=== PATIENT | female | born 1950 | race American Indian/Alaskan Native ===

== ENCOUNTER 2018-07-17 13:25 | Emergency (ER) | payer MEDICARE, OTHER ==
[2018-07-17 13:27] VITALS: BMI 47.6
[2018-07-17 13:53] VITALS: RESP 18
--- NOTE | 2018-07-17 16:20 | RAD ---
Date of service: 07/17/2018 PROCEDURE: Radiographs of the Lumbar Spine. HISTORY: L leg numbness COMPARISON: No prior. FINDINGS: BONES: There is mild anterior subluxation of L4 over L5. There are no compression fractures. DISC SPACES: Unremarkable. OTHER FINDINGS: Facet arthropathy IMPRESSION: Mild degenerative changes.
--- NOTE | 2018-07-17 16:22 | ED PDOC ---
Arrival/HPI - History of Present Illness Narrative History of Present Illness (Text): 07/17/18 16:19 Pt is a 67 yo F with pmhx of HTN, L4-5 disc herniation, CAMILLE and OA who presents for R leg numbness. She states that this started at 10:15 this AM after she was on the toilet using the bathroom. She states that she has never had this issue before. She denies any recent trauma to the area. She reports that there is no pain, just numbness to the R leg. She denies any weakness to the area and states that she can put weight on it and she can walk in it without issue. She states that the numbness is localized to the lateral R side of her leg, and goes down past the knee. Pmhx: HTN, CAMILLE, L4-5 disc herniation, OA Pshx: Denies All: Tylenol, amlodipine, hydrocodone Social: Denies tobacco use, etoh or illicit drug use Fam Hx; Denies Time/Duration: 1-3 hours Symptom Onset: Sudden Symptom Course: Improving <Eddi Sierra - Last Filed: 07/17/18 19:38> <Blanca Herrera - Last Filed: 07/17/18 19:41> - General Chief Complaint: Lower Extremity Problem/Injury Time Seen by Provider: 07/17/18 14:22 Past Medical History - Provider Review Nursing Documentation Reviewed: Yes - Infectious Disease Hx of Infectious Diseases: None - Reproductive Menopause: Yes - Cardiac Hx Hypertension: Yes - Psychiatric Hx Substance Use: No - Anesthesia Hx Anesthesia Reactions: No <Eddi Sierra - Last Filed: 07/17/18 19:38> Family/Social History - Physician Review Nursing Documentation Reviewed: Yes Family/Social History: No Known Family HX Smoking Status: Never Smoked Hx Alcohol Use: No Hx Substance Use: No <Eddi Sierra - Last Filed: 07/17/18 19:38> Allergies/Home Meds <Eddi Sierra - Last Filed: 07/17/18 19:38> <Blanca Herrera - Last Filed: 07/17/18 19:41> Allergies/Adverse Reactions: Allergies acetaminophen [From Vicodin] Allergy (Verified 07/26/16 00:59) RASH amlodipine Allergy (Verified 07/26/16 00:59) RASH hydrocodone Allergy (Verified 07/26/16 00:59) RASH hydrocodone bitartrate [From Vicodin] Allergy (Verified 07/26/16 00:59) RASH Penicillins Allergy (Verified 07/26/16 00:59) RASH sulfamethoxazole [From Bactrim] Allergy (Verified 07/26/16 00:56) RASH trimethoprim [From Bactrim] Allergy (Verified 07/26/16 00:56) RASH tyelenol Allergy (Uncoded 07/26/16 00:59) RASH Home Medications: Home Meds Medication Instructions Recorded Confirmed Baclofen 10 mg PO PRN PRN 07/26/16 07/26/16 Esomeprazole Magnesium [Nexium] 40 mg PO DAILY 07/26/16 07/26/16 Furosemide [Lasix] 40 mg PO DAILY 07/26/16 07/26/16 amLODIPine [Norvasc] 5 mg PO DAILY 07/26/16 07/26/16 Review of Systems - Physician Review All systems were reviewed & negative as marked: Yes - Review of Systems Constitutional: absent: Weight Change, Fevers Respiratory: absent: SOB, Cough Cardiovascular: absent: Chest Pain, Palpitations Gastrointestinal: absent: Abdominal Pain, Nausea, Vomiting Genitourinary Female: absent: Dysuria, Hematuria Neurological: absent: Headache, Dizziness, Focal Weakness, Speech Changes, Facial Droop, Seizure <Eddi Sierra - Last Filed: 07/17/18 19:38> Physical Exam Vital Signs Reviewed: Yes Vital Signs Temp Pulse Resp BP Pulse Ox 07/17/18 13:49 99 F 72 18 173/97 H 99 Temperature: Afebrile Blood Pressure: Hypertensive Pulse: Regular Respiratory Rate: Normal Appearance: Positive for: Well-Appearing, Non-Toxic, Comfortable Pain Distress: None Mental Status: Positive for: Alert and Oriented X 3 - Systems Exam Head: Present: Atraumatic, Normocephalic Pupils: Present: PERRL Extroacular Muscles: Present: EOMI Conjunctiva: Present: Normal Respiratory/Chest: Present: Clear to Auscultation, Good Air Exchange. No: Respiratory Distress, Accessory Muscle Use, Wheezes, Rales, Rhonchi Cardiovascular: Present: Regular Rate and Rhythm, Normal S1, S2. No: Murmurs, Rub, Gallop Abdomen: Present: Normal Bowel Sounds. No: Tenderness, Distention, Rebound, Guarding Lower Extremity: Present: Normal Inspection, NORMAL PULSES, Capillary Refill < 2 s (Palpated the lateral aspect of the R leg where pt indicated the numbness feeling. Started distally and told her to inform me when she could no longer feel my hand. She was able to feel my hand through out her leg with no dimished sensation, no noted erythema, skin was intact. No tenderness to palpation of the back. No ecchymosis or obvious deformities of L leg. Sensation was equally felt bilaterally as per pt). No: Edema, CALF TENDERNESS, Cyanosis, Tenderness, Deformity Neurological: Present: GCS=15, CN II-XII Intact, Speech Normal, Motor Func Grossly Intact, Normal Sensory Function, Normal Cerebellar Funct, Norm Deep Tendon Reflexes, Gait Normal, Normal 2Pt Descrimination Skin: Present: Warm, Dry, Normal Color. No: Rashes Psychiatric: Present: Alert, Oriented x 3, Normal Insight, Normal Concentration, Normal Affect, Normal Mood <Eddi Sierra - Last Filed: 07/17/18 19:38> Vital Signs Temp Pulse Resp BP Pulse Ox 07/17/18 18:02 98.2 F 62 18 148/73 98 07/17/18 13:49 99 F 72 18 173/97 H 99 07/17/18 13:27 99 F 72 18 173/97 H 99 <Blanca Herrera - Last Filed: 07/17/18 19:41> Medical Decision Making ED Course and Treatment: 07/17/18 17:48 Pt is a 67 yo F with pmhx detailed above who presents for R lateral leg numbness. Pts described numbness did not follow any sensory dermatomes and had improved upon exam. Pt was able to feel sensation equally b/l and there was no focal weakness, dysarthria or sign of overt trauma to leg or back. Pt has existing L4-5 disc hernation hx - XR of lumbar back 07/17/18 18:19 Progress Note Pt states that she is feeling much better now. Lumbar spine XR reported by radiologist: Mild degenerative changes. Pt is encouraged to f/u with PMD and to return if the symptoms return or worsen. - RAD Interpretation Radiology Orders: 07/17/18 15:14 LS SPINE AP/LAT [RAD] Stat <Racheal Sierramad - Last Filed: 07/17/18 19:38> ED Course and Treatment: 07/17/18 17:50 67 year old female presents to the Emergency Department complaining of subjective right leg numbness. In agreement with resident note. Patient was seen and evaluated with resident, came up with plan and treatment together. - RAD Interpretation Radiology Orders: 07/17/18 15:14 LS SPINE AP/LAT [RAD] Stat <Blanca Herrera - Last Filed: 07/17/18 19:41> - PA / [employer] / Resident Statement / has reviewed & agrees with the documentation as recorded. MD/DO has examined the patient and agrees with the treatment plan. - Scribe Statement The provider has reviewed the documentation as recorded by the Scribe Epi Tovar. All medical record entries made by the Kathyibe were at my direction and personally dictated by me. I have reviewed the chart and agree that the record accurately reflects my personal performance of the history, physical exam, medical decision making, and the department course for this patient. I have also personally directed, reviewed, and agree with the discharge instructions and disposition. <Blanca Herrera - Last Filed: 07/17/18 19:41> Disposition/Present on Arrival - Present on Arrival Any Indicators Present on Arrival: No History of DVT/PE: No History of Uncontrolled Diabetes: No Urinary Catheter: No History of Decub. Ulcer: No History Surgical Site Infection Following: None - Disposition Have Diagnosis and Disposition been Completed?: Yes Disposition Time: 18:22 Patient Plan: Discharge <Eddi Sierra - Last Filed: 07/17/18 19:38> <Blanca Herrera - Last Filed: 07/17/18 19:41> - Disposition Diagnosis: Right leg paresthesias Disposition: HOME/ ROUTINE Condition: STABLE Discharge Instructions (ExitCare): Paresthesias (DC) Additional Instructions: LAINE HARRISON, thank you for letting us take care of you today. Your provider was Blanca Herrera MD and you were treated for NUMBNESS IN RIGHT LEG. The emergency medical care you received today was directed at your acute symptoms. If you were prescribed any medication, please fill it and take as directed. It may take several days for your symptoms to resolve. Return to the Emergency Department if your symptoms worsen, do not improve, or if you have any other problems. Please contact your doctor within 1-2 days for follow up. Bring any paperwork you were given at discharge with you along with any medications you are taking to your follow up visit. Our treatment cannot replace ongoing medical care by a primary care provider outside of the emergency department. Thank you for allowing the [facility] team to be part of your care today. Forms: [employer] (Italian)
[2018-07-17 18:03] VITALS: TEMP 98.2
[2018-07-17 18:05] VITALS: BP 148/73; PULSE 62; O2SAT 98
== END 2018-07-17 18:02 | disposition home or self-care (01) ==
LOC: ED 13:25
DX: R20.2 Paresthesia of skin (principal); M51.26 Other intervertebral disc displacement, lumbar region

== ENCOUNTER 2018-10-13 11:04 | Outpatient (CLI) | payer MEDICARE | END 2018-10-13 11:05 | disposition home or self-care (01) | LOC: RAD 11:04 ==

== ENCOUNTER 2018-11-20 10:38 | Outpatient (CLI) | payer MEDICARE | END 2018-11-20 10:39 | disposition home or self-care (01) | LOC: PAT 10:38 | DX: R31.9 Hematuria, unspecified (principal); Z01.818 Encounter for other preprocedural examination; I44.7 Left bundle-branch block, unspecified ==

== ENCOUNTER 2019-02-11 06:27 | Day surgery (SDC) | payer MEDICARE ==
[2019-02-03 14:55] VITALS: BMI 38.2
[2019-02-11] MEDS ORDERED: Propofol 10 mg/ml Inj (20 ML) ONE (07:54)
[2019-02-11] MEDS ORDERED: Midazolam 2 MG/2 ML VIAL ONE (07:54)
[2019-02-11] MEDS ORDERED: cefTRIAXone (Rocephin) 1 gm Inj ONE (08:36)
[2019-02-11] MEDS ORDERED: Iohexol 240 (50 ml) ONE (08:37)
[2019-02-11] MEDS ORDERED: Gentamicin 80 mg in 0.9% NS 80 MG/100 ML BAG IVPB ONE (08:58)
[2019-02-11] MEDS ORDERED: Sodium Chloride 0.9% 1,000 ML IV SCH (09:30)
[2019-02-11] MEDS ORDERED: Oxycodone/Acetaminophen 5/325 mg Tab PO PRN (09:33)
[2019-02-11] MEDS ORDERED: Ciprofloxacin 400mg/200ml D5W 400 MG/200 ML BAG IVPB STA (09:34)
[2019-02-11] MEDS ORDERED: Ciprofloxacin 400mg/200ml D5W 400 MG/200 ML BAG IVPB ONE (09:53)
[2019-02-11] MEDS ORDERED: Ciprofloxacin 400mg/200ml D5W IVPB ONE (09:55)
[2019-02-11] MEDS ORDERED: Oxycodone/Acetaminophen 5/325 mg Tab ONE (10:18)
[2019-02-11 10:54] VITALS: RESP 18; TEMP 97.7
[2019-02-11 11:23] VITALS: O2SAT 98
--- NOTE | 2019-02-11 13:25 | RAD ---
Date of service: 02/11/2019 PROCEDURE: Cystogram HISTORY: CYSTOCELE FILLING DEFECT OF RIGHT KIDNEY COMPARISON: TECHNIQUE: 25.4 sec of fluoro time. Cumulative dose 13.56 mGy. 9 images submitted FINDINGS: There is a filling defect in the upper pole infundibulum. The left renal collecting system is unremarkable. The bladder is incompletely distended. The bladder extends below the symphysis pubis consistent with prolapse. IMPRESSION: As above
[2019-02-11 14:16] VITALS: BP 110/60; PULSE 70
--- NOTE | 2019-02-11 14:18 | PN ---
DATE: 02/11/2019 IMMEDIATE POSTOPERATIVE NOTE See the history and physical and operative note. The patient is in the recovery room status post cystoscopy and stent insertion. She has #1 diagnosis of procedure. The patient is currently stable. The plan will be outpatient followup and management. Further plans to follow. Benson Gauthier MD
--- NOTE | 2019-02-11 20:26 | HP ---
DATE OF EXAM: 02/11/2019 UROLOGY ADMISSION HISTORY AND PHYSICAL REASON FOR ADMISSION: Workup of voiding dysfunction, flank pain, and abdominal pain. HISTORY OF PRESENT ILLNESS: Ms. Yang is a very pleasant lady. She is here today for further diagnostic study. She is 68 years old, she is a patient of Dr. Jung. She is referred for further diagnostic studies for microhematuria, for voiding dysfunction, abdominal pain, and occasional flank pain. She is here today for a urethral cystoscopy and possible retrograde pyelogram, possible biopsy and fulguration. PAST MEDICAL AND SURGICAL HISTORY: Significant in that she has coronary artery disease, she has had cardiac catheterization that did not show anything significant. She had medical clearance on the chart from Dr. Jung. MEDICATIONS: See the chart. ALLERGIES: NONE. REVIEW OF SYSTEMS: As listed above, noncontributory. No weight loss, chest pain, shortness of breath or the like. PHYSICAL EXAMINATION: GENERAL: She is a well-nourished female, in no apparent distress. VITAL SIGNS: Within normal limits, included in the chart. LUNGS: Clear. HEART: S1 and S2. ABDOMEN: Overall soft and nontender. PELVIC: As listed in the cystoscopy. See the chart operative note. LABORATORY DATA: See in the chart. DIAGNOSES: Voiding dysfunction, abdominal pain, microhematuria. PLAN: As follows; she is here for further diagnostic study. We discussed the location for workup in the office versus here. The patient wants anesthesia. We have obtained medical clearance. The plan is as follows; 1. Antibiotic prophylaxis. 2. Obtain cystoscopy. 3. Follow up with a retrograde pyelogram and possible biopsy. Further plans will follow depending on what we find. Benson Gauthier MD
--- NOTE | 2019-02-11 21:06 | OP ---
PROCEDURE DATE: 02/11/2019 PREOPERATIVE DIAGNOSES: Right flank pain, voiding dysfunction, microhematuria. POSTOPERATIVE DIAGNOSES: Right flank pain, voiding dysfunction, microhematuria, a filling defect noted in the right side, right hydronephrosis and cystocele. COMPLICATION: There were no complication. PROCEDURES: Exam under anesthesia, cystoscopy, bilateral retrograde pyelograms, and insertion of right double-J sent. See the plans at the end, the patient needs a right ureteroscopy and [employer] imaging. INDICATIONS: See the history and physical for further details. BLOOD LOSS: Less than 10 mL. . There were no complications. FINDINGS: 1. Moderate cystocele. 2. Filling defect in the right lower pole, never filled out well. 3. There is some right hydronephrosis, unclear etiology. Normal left side. There were no complications. INDICATIONS: See the history and physical for further details. A very pleasant lady with voiding dysfunction, right-sided flank pain, microhematuria, comes in for the above procedure. We explained to the family, discussed risks, benefits, and alternatives. No biopsies with no lesions in the bladder. DESCRIPTION OF PROCEDURE: After obtaining informed consent, the patient was placed on the table. Routine monitors were placed. Time-out was called to confirm the patient and positioning. Antibiotic prophylaxis was used. Cystoscope via urethra, bladder was inspected carefully. There was no bladder lesion. The ureteral orifice was identified. Clear efflux on both sides. Retrograde pyelogram was performed. On the right side, the right lower pole never filled out well. The left side is all within normal limits. At this point, we put a right Double-J sent in. The patient tolerated without complication. We will plan further cystoscopy, ureteroscopy. We plan to review the previous imaging and CT scan planned. Benson Gauthier MD
== END 2019-02-11 14:15 | disposition home or self-care (01) ==
LOC: SDS 06:27
PROVIDERS: ATTEND Urology
DX: N13.30 Unspecified hydronephrosis (principal); N81.10 Cystocele, unspecified; R31.29 Other microscopic hematuria; I25.10 Atherosclerotic heart disease of native coronary artery without angina pectoris
CPT/HCPCS: 52332; 52351; 74430; J0744; J1580; J2704; J3010; J7030; Q9966

== ENCOUNTER 2019-02-13 20:27 | Emergency (ER) | payer MEDICARE ==
[2019-02-13 20:59] VITALS: RESP 18; TEMP 98.6; BMI 47.8
--- NOTE | 2019-02-13 21:12 | ED PDOC ---
Arrival/HPI - General Chief Complaint: Abdominal Pain Time Seen by Provider: 02/13/19 20:40 Historian: Patient - History of Present Illness Narrative History of Present Illness (Text): 02/13/19 21:09 A 68 year old female, whose past medical history includes hypertension, CAMILLE, L4- 5 disc herniation, and OA, presents to the emergency department complaining of left back pain radiating to lower left abdomen since yesterday. Patient notes she experienced associated vomiting, chest soreness from vomiting episodes, and nausea. Patient denies any current pain. Patient notes she had a stent procedure to her right lower abdomen done this past Saturday by Dr. Merchant. Patient states she called him yesterday inquiring about her symptoms and was advised to go to the ER for x-rays. Patient denies any fever, chills, or any other com plaints. PMD: Dr. Gabriela Newman Time/Duration: 24 hours Symptom Onset: Gradual Symptom Course: Resolved Activities at Onset: Light Context: Home Past Medical History - Provider Review Nursing Documentation Reviewed: Yes - Infectious Disease Hx of Infectious Diseases: None - Cardiac Hx Hypertension: Yes Hx Pacemaker: No - Neurological Hx Paralysis: No - Hematological/Oncological Hx Blood Transfusions: No - Musculoskeletal/Rheumatological Hx Musculoskeletal Disorders: Yes Hx Arthritis: Yes - Psychiatric Hx Emotional Abuse: No Hx Physical Abuse: No Hx Substance Use: No - Anesthesia Hx Anesthesia: Yes Hx Anesthesia Reactions: No Hx Malignant Hyperthermia: No - Suicidal Assessment Feels Threatened In Home Enviroment: No Family/Social History - Physician Review Nursing Documentation Reviewed: Yes Family/Social History: No Known Family HX Smoking Status: Never Smoked Hx Alcohol Use: No Hx Substance Use: No Allergies/Home Meds Allergies/Adverse Reactions: Allergies codeine Allergy (Intermediate, Verified 11/20/18 11:38) ITCHING/SWELLING hydrocodone [From Vicodin] Allergy (Intermediate, Verified 11/20/18 11:38) ITCHING Penicillins Allergy (Intermediate, Verified 11/20/18 11:38) ITCHING sulfamethoxazole [From Bactrim] Allergy (Intermediate, Verified 11/20/18 11:38) RASH amlodipine Adverse Reaction (Intermediate, Verified 02/03/19 14:55) SWELLING ALLERGIC TO 'blue pill' ONLY aspirin Adverse Reaction (Intermediate, Verified 11/20/18 11:38) ITCHING ONLY ABLE TO TAKE 81MG Home Medications: Home Meds Medication Instructions Recorded Confirmed amLODIPine [Norvasc] 5 mg PO QPM 07/26/16 02/11/19 Acetaminophen [Tylenol Arthritis] 650 mg PO PRN PRN 11/20/18 02/11/19 Aspirin [Adult Low Dose Aspirin EC] 81 mg PO QPM 11/20/18 02/11/19 Coenzyme Q10 [Co Q-10] 100 mg PO QPM 11/20/18 02/11/19 Ferrous Sulfate [Slow Release Iron] 143 mg PO QPM 11/20/18 02/11/19 Losartan/Hydrochlorothiazide 1 tab PO QPM 11/20/18 02/11/19 [Losartan-Hctz 50-12.5 mg Tab] [place]-3 Fatty Acids/Fish Oil [Fish 1,000 mg PO QPM 11/20/18 02/11/19 Oil 1,000 mg Capsule] Propylene Glycol/Peg 400 [Systane 1 drop EACHEYE DAILY 11/20/18 02/11/19 Ultra 0.4%-0.3% 10 ml] Acetaminophen with Codeine 1 tab PO Q6H PRN 02/11/19 02/11/19 [Tylenol with Codeine No. 3 300 mg-30 mg] Tamsulosin [Flomax] 0.4 mg PO DAILY 02/11/19 02/11/19 levoFLOXacin [Levaquin] 500 mg PO DAILY 02/11/19 02/11/19 Review of Systems - Physician Review All systems were reviewed & negative as marked: Yes - Review of Systems Constitutional: absent: Fevers, Other (chills) Cardiovascular: Other (chest soreness from vomiting) Gastrointestinal: Abdominal Pain, Nausea, Vomiting Musculoskeletal: Back Pain Physical Exam Vital Signs Reviewed: Yes Vital Signs Temp Pulse Resp BP Pulse Ox 02/13/19 20:49 98.6 F 73 18 150/96 H 97 Temperature: Afebrile Blood Pressure: Hypertensive Pulse: Regular Respiratory Rate: Normal Appearance: Positive for: Well-Appearing Mental Status: Positive for: Alert and Oriented X 3 - Systems Exam Head: Present: Atraumatic, Normocephalic Pupils: Present: PERRL Extroacular Muscles: Present: EOMI Conjunctiva: Present: Normal Respiratory/Chest: Present: Clear to Auscultation, Good Air Exchange. No: Respiratory Distress, Accessory Muscle Use Cardiovascular: Present: Regular Rate and Rhythm, Normal S1, S2. No: Murmurs Abdomen: No: Tenderness, Distention, Peritoneal Signs Back: Present: Normal Inspection. No: CVA Tenderness Neurological: Present: GCS=15, CN II-XII Intact, Speech Normal Skin: Present: Warm, Dry, Normal Color. No: Rashes Psychiatric: Present: Alert, Oriented x 3, Normal Insight, Normal Concentration Medical Decision Making ED Course and Treatment: 02/13/19 21:09 Impression: 68 year old female presenting to the emergency room complaining of abdominal pain. Plan: -- CT of abdomen and pelvis without PO or IV contrast -- CMP -- CBC -- Toradol -- Reglan -- Reassess and disposition Prior Visits: Notes and results from previous visits were reviewed. Progress Notes: 02/13/19 23:27 Upon re-evaluation, patient states she feels better and states she has a follow up appointment with a urologist on 18 of February. Patient was updated on test results, scripts will be provided. Opportunity for questions given and answered. Patient is stable for discharge. - Lab Interpretations Lab Results: 02/13/19 21:33 02/13/19 21:33 Lab Results 02/13/19 21:33: Sodium 140, Potassium 4.3, Chloride 106, Carbon Dioxide 26, Anion Gap 12, BUN 25 H, Creatinine 0.9, Est GFR ( Amer) > 60, Est GFR (Non-Af Amer) > 60, Random Glucose 91, Calcium 9.2, Total Bilirubin 0.6, AST 31, ALT 14, Alkaline Phosphatase 60, Total Protein 6.5, Albumin 3.7, Globulin 2.8, Albumin/Globulin Ratio 1.3 02/13/19 21:33: WBC 5.7, RBC 4.19, Hgb 12.0, Hct 38.4, MCV 91.6, MCH 28.6, MCHC 31.3, RDW 14.0, Plt Count 249, MPV 10.6, Neut % (Auto) 62.0, Lymph % (Auto) 26.8, [place] % (Auto) 9.1 H, Eos % (Auto) 1.2 L, Baso % (Auto) 0.9, Lymph # (Auto) 1.5, [place] # (Auto) 0.5, Eos # (Auto) 0.1, Baso # (Auto) 0.05, Absolute Neuts (auto) 3.54 I have reviewed the lab results: Yes - RAD Interpretation Narrative RAD Interpretations (Text): 02/13/19 23:21 EXAM: CT Abdomen and Pelvis without IV contrast CLINICAL HISTORY: LEFT FLANK PAIN STENT PUT IN 2X DAYS AGO TECHNIQUE: Axial computed tomography images of the abdomen and pelvis without intravenous contrast. 1305.00 mGy-cm CONTRAST: Without COMPARISON: None provided. FINDINGS: LUNG BASES: The lung bases appear clear. No pleural effusions are seen. LIVER: Unremarkable. GALLBLADDER AND BILE DUCTS: The gallbladder appears within normal limits. No radioopaque gallstones are seen. No biliary ductal dilatation is evident. PANCREAS: Unremarkable. SPLEEN: Unremarkable. ADRENAL GLANDS: Unremarkable. KIDNEYS, URETERS, AND BLADDER: The kidneys appear within normal limits. There is no hydronephrosis or hydroureter. No urinary calculi are seen. A double pigtail right ureteric stent is present which appears to reside in satisfactory position. There is subtle left perinephric and left periureteral haziness noted which may indicate recently passed stone vs pyelonephritis/ureteritis. The urinary bladder appeared normal in size and configuration. STOMACH AND BOWEL: A large hiatal hernia is present.Unremarkable appearance of the stomach and bowel. No evidence of bowel obstruction. No evidence suggesting enteritis or colitis. APPENDIX: No evidence of acute appendicitis on CT examination. PERITONEUM: No free fluid. No free air. LYMPH NODES: No lymphadenopathy is evident. REPRODUCTIVE: Unremarkable as visualized. VASCULATURE: No evidence of abdominal aortic aneurysm. BONES: No aggressive appearing osseous lesion. No acute osseous pathology evident. IMPRESSION: 1. Subtle left perinephric and left periureteral haziness noted which may indicate recently passed stone vs pyelonephritis/ureteritis. Consider follow up with CT Urogram. 2. A double pigtail right ureteric stent is noted appearing to reside in satisfactory position. 3. Large hiatal hernia is present. Electronically signed on February 13, 2019 10:51:41 PM EDT by: Cody Vaca M.D., M.B.A., Certified By [employer] Trained MRI and CT Specialist Dry Goods Inspector: Radiologist - Scribe Statement The provider has reviewed the documentation as recorded by the Gary Gibbons All medical record entries made by the Scribe were at my direction and personally dictated by me. I have reviewed the chart and agree that the record accurately reflects my personal performance of the history, physical exam, medical decision making, and the department course for this patient. I have also personally directed, reviewed, and agree with the discharge instructions and disposition. Disposition/Present on Arrival - Present on Arrival Any Indicators Present on Arrival: No History of DVT/PE: No History of Uncontrolled Diabetes: No Urinary Catheter: No History of Decub. Ulcer: No History Surgical Site Infection Following: None - Disposition Have Diagnosis and Disposition been Completed?: Yes Diagnosis: Renal colic Disposition: HOME/ ROUTINE Disposition Time: 23:27 Patient Plan: Discharge Condition: STABLE Discharge Instructions (ExitCare): Renal Colic (DC) Print Language: LATVIAN Additional Instructions: All medical record entries made by the Scribe were at my direction and pers onally dictated by me. I have reviewed the chart and agree that the record accurately reflects my personal performance of the history, physical exam, medical decision making, and the department course for this patient. I have also personally directed, reviewed, and agree with the discharge instructions and disposition. Please follow up with Dr. Gauthier for your follow up appointment Continue to hydrate with fluids as well as take medication as prescribed Prescriptions: Naproxen 500 mg PO BID #10 tab Ondansetron ODT [Zofran ODT] 4 mg PO Q6H #12 odt Referrals: Kraig Gauthier MD [Staff Provider] - Follow up with primary Forms: [employer] (Kyrgyz)
[2019-02-13 21:47] LABS: BASO # 0.05 K/mm3 (0.0-2.0); BASO % 0.9 % (0.0-3.0); EOS # 0.1 (0.0-0.7); EOS % 1.2 % (1.5-5.0); LYMPH # 1.5 (1.2-3.4); LYMPH % 26.8 % (22.0-35.0); MEAN CELL VOLUME 91.6 fl (80.0-105.0); MEAN CORPUSCULAR HEMOGLOBIN 28.6 pg (25.0-35.0); MEAN CORPUSCULAR HGB CONC 31.3 g/dl (31.0-37.0); MEAN PLATELET VOLUME 10.6 fl (7.0-11.0); MONO # 0.5 (0.1-0.6); MONO % 9.1 % (1.0-6.0); RBC 4.19 10^6/uL (3.5-6.1); WHITE BLOOD COUNT 5.7 10^3/uL (4.5-11.0)
[2019-02-13 21:50] LABS: ALB/GLOB RATIO 1.3 (1.1-1.8); ALBUMIN 3.7 g/dL (3.0-4.8); ALT/SGPT 14 U/L (7-56); AST/SGOT 31 U/L (14-36); BLOOD UREA NITROGEN 25 mg/dL (7-21); CALCIUM 9.2 mg/dL (8.4-10.5); GFR NON-AFRICAN AMERICAN > 60
[2019-02-14 00:56] VITALS: BP 140/82; PULSE 74; O2SAT 98
--- NOTE | 2019-02-14 08:47 | CT ---
Date of service: 02/13/2019 PROCEDURE: CT Abdomen and Pelvis without intravenous contrast HISTORY: COMPARISON: 10/13/2018 TECHNIQUE: CT scan of the abdomen and pelvis was performed without administration of intravenous contrast. Oral contrast was not administered. Coronal and sagittal reformatted images were obtained. Radiation dose: Total exam DLP = 1305.54 mGy-cm. This CT exam was performed using one or more of the following dose reduction techniques: Automated exposure control, adjustment of the mA and/or kV according to patient size, and/or use of iterative reconstruction technique. FINDINGS: LOWER THORAX: There is linear atelectasis/scarring in the lower lobes. LIVER: Normal in size. No gross lesion or ductal dilatation. GALLBLADDER AND BILE DUCTS: Well distended. No calcified gallstones. No common bile duct dilatation. PANCREAS: Normal in size. No gross lesion or ductal dilatation. SPLEEN: Normal in size. ADRENALS: Normal in size. No discrete nodule. KIDNEYS AND URETERS: Both kidneys are normal in size. No hydronephrosis or nephrolithiasis. A right-sided double-J pelves ureteral stent is identified with the proximal and in the extrarenal pelvis. VASCULATURE: Normal in caliber. No aortic aneurysm. No aortic atherosclerotic calcification or mural plaque present. BOWEL: Evaluation of the bowel is limited in the absence of oral contrast. The small bowel loops are normal in caliber. The colon is normal in size. No bowel dilatation or wall thickening. No bowel obstruction. APPENDIX: Normal appendix. PERITONEUM: No free fluid. No free air. LYMPH NODES: No enlarged lymph nodes. BLADDER: Well distended and normal in appearance. REPRODUCTIVE: The is is normal in size. BONES: There is mild levoscoliosis in the lumbar spine. No acute fracture. Multilevel degenerative disc disease with degenerative grade 1 anterior listhesis of L4 on L5. OTHER FINDINGS: There is a large sliding hiatal hernia. IMPRESSION: 1. Right pelvic ureteral stent with the proximal end of the stent in the extrarenal pelvis. 2. Large sliding hiatal hernia. A preliminary report was provided by [email or web address].
== END 2019-02-14 00:57 | disposition home or self-care (01) ==
LOC: ED 20:27
DX: N23 Unspecified renal colic (principal); I10 Essential (primary) hypertension
CPT/HCPCS: 74176; 80053; 85025; 96374; 99283; J1885

== ENCOUNTER 2019-03-04 06:14 | Day surgery (SDC) | payer MEDICARE | END 2019-03-04 14:50 | disposition home or self-care (01) | LOC: SDS 06:14 ==